=== PATIENT | male | born 1990 | race Caucasian/White ===

== ENCOUNTER → 2018-01-04 | Outpatient (CLI) | payer OTHER ==
[~2018-01-04] MED LIST: GABA-549 PO; KET10 PO; MIR15 PO; ONDA4TAB PO; OXYC-865 PO; VEN75 PO
--- NOTE | 2018-01-04 15:20 | RADIOLOGY IMAGING REPORT ---
FACILITY: [facility] PATIENT NAME: Davian Jiménez : 1990 MR: [id number] V: [id number] EXAM DATE: ORDERING PHYSICIAN: SARINA MILTON TECHNOLOGIST: [place] [facility] [place] Jim[place] : 1990 Visit/Account:[id number] Date of Sevice: 01/04/2018 Study: Lumbar spine series Indication: Low back pain Comparison study: None Findings: AP, lateral, bilateral oblique, and cone-down lateral views of the lumbar spine demonstrate s no evidence of compression fracture. There is no evidence of spondylolisthesis. There is no evidenc e of lytic or blastic lesions. There is no significant degenerative disease identified. IMPRESSION: Unremarkable plain film series of the lumbar spine. Report Dictated By: Drake Chaidez at 01/04/2018 3:15 PM Report E-Signed By: Drake Chaidez at 01/04/2018 3:16 PM WSN:[id number]
== END ==
LOC: RAD 14:37
PROVIDERS: ATTEND Chiropractor
DX: M54.5 Low back pain (principal)
CPT/HCPCS: 72114

== ENCOUNTER → 2018-02-26 | Outpatient (CLI) | payer OTHER ==
--- NOTE | 2018-02-26 16:16 | RADIOLOGY IMAGING REPORT ---
FACILITY: [facility] [place] PATIENT NAME: Davian Jiménez : 1990 MR: [id number] V: [id number] EXAM DATE: ORDERING PHYSICIAN: ISIDRO MARIE TECHNOLOGIST: Location: [facility] Patient: Davian Jiménez : 1990 Visit/Account:[id number] Date of Sevice: 02/26/2018 L SPINE W/O CONTRAST COMPARISON: None Additional pertinent history: Chronic low back pain Technique: Multiplanar multisequence lumbar spine MRI was performed without gadolinium enhancement. FINDINGS: Vertebral body heights and alignment: Mild straightening of normal lumbar lordosis. Vertebral marrow signal: Type I degenerative endplate changes at L4-L5 with findings of an interverte bral disc herniation along the anterior superior endplate of L5. Distal thoracic cord and conus: Negative. The conus ends at T12-L1. Surrounding soft tissues: Negative. Inspection of the disc spaces reveal the following: L5-S1: Posterior broad-based disc protrusion with a superimposed large right lateral recess and proxi mal right neural foraminal extruded migrated disc with severe impingement upon the traversing right S 1 and S2 nerve roots. There are findings of a posterior broad-based disc protrusion at the level of the disc space with facet hypertrophic changes. Moderate bilateral neural foraminal narrowing. L4-L5: Posterior broad-based disc protrusion with facet hypertrophic changes. Mild bilateral neural foraminal narrowing without canal stenosis. L3-L4: Circumferential disc bulging with facet hypertrophic changes. No significant canal or neural foraminal narrowing. L2-L3: Minimal circumferential disc bulging with facet hypertrophic changes. No significant canal or neural foraminal narrowing. L1-L2: Negative. T12-L1: Negative. IMPRESSION: 1. Large right lateral recess and proximal right neural foraminal extruded migrated disc with severe impingement upon the traversing right S1 and S2 nerve roots. 2. At the level of the disc space there are findings of moderate bilateral neural foraminal narrowin g at L5-S1 as well. Report Dictated By: John Argueta MD at 02/26/2018 4:09 PM Report E-Signed By: John Argueta MD at 02/26/2018 4:13 PM WSN:[id number]
== END ==
LOC: MRI 00:13
PROVIDERS: ATTEND Neurological Surgery
DX: M51.26 Other intervertebral disc displacement, lumbar region (principal)
CPT/HCPCS: 72148

== ENCOUNTER → 2018-07-15 | Outpatient (CLI) | payer OTHER ==
--- NOTE | 2018-07-15 14:01 | RADIOLOGY IMAGING REPORT ---
FACILITY: [facility] PATIENT NAME: Davian Jiménez : 1990 MR: [id number] V: [id number] EXAM DATE: [id number] ORDERING PHYSICIAN: ISIDRO MARIE TECHNOLOGIST: Location: Patient: Davian Jiménez : 1990 Visit/Account:[id number] Date of Sevice: 07/15/2018 EXAMINATION: MRI Lumbar spine without intravenous contrast HISTORY: Low back pain. COMPARISON: Lumbar spine MRI dated 02/26/2018. TECHNIQUE: Multi-planar, multi-sequence lumbar spine MRI was performed without intravenous contrast administration. FINDINGS: Alignment: Normal. Vertebral marrow signal: Schmorl's node in the superior L5 endplate with mild surrounding bone marrow edema, similar compared with 02/26/2018. Discogenic fatty marrow changes posteriorly at L4-L5. Distal thoracic cord: Negative. Conus: negative, terminates at L1 Cauda equina: Negative. Paravertebral soft tissues: Postsurgical changes in the lower lumbar spine with 2.1 x 1.2 x 1.0 cm no nspecific subcutaneous fluid collection along the surgical approach. Visualized abdominal and pelvic structures: Negative. Disc Spaces: Lower thoracic spine: Negative. L1-2: Negative. L2-3: Mild circumferential disc bulge. No significant stenosis. No significant change. L3-4: Mild circumferential disc bulge. No significant stenosis. No significant change. L4-5: Circumferential disc bulge and facet hypertrophy. No significant spinal canal stenosis. Mild bi lateral neural foraminal stenosis. No significant change. L5-S1: Postop right hemilaminectomy and discectomy. Circumferential disc bulge and facet hypertrophy. 11 x 10 x 10 mm residual/recurrent disc extrusion versus granulation tissue in the right lateral rec ess with mild medial displacement of the traversing nerve roots. Mild to moderate left and moderate t o severe right neural foraminal stenosis. IMPRESSION: 1. Multilevel degenerative disc disease and facet hypertrophy. 2. Postop right hemilaminectomy and discectomy at L5-S1. 11 x 10 x 10 mm residual/recurrent disc extr usion versus granulation tissue in the right lateral recess at L5-S1. 3. 2.1 x 1.2 x 1.0 cm nonspecific subcutaneous fluid collection along the surgical approach. Report Dictated By: Milton Moura MD at 07/15/2018 1:48 PM Report E-Signed By: Milton Moura MD at 07/15/2018 1:56 PM WSN:[email or web address]
== END ==
LOC: MRI 01:18
PROVIDERS: ATTEND Neurological Surgery
DX: M47.896 Other spondylosis, lumbar region (principal); Z98.890 Other specified postprocedural states
CPT/HCPCS: 72148